=== PATIENT | male | born 1975 | race Caucasian/White ===

== ENCOUNTER 2021-10-13 16:18 | Emergency (ER) | payer OTHER, BC ==
[2021-10-13] MEDS ORDERED: IBUPROFEN600 MG PO (19:26)
[2021-10-13] MEDS ORDERED: NORFLEX 100 MG100 MG PO (19:26)
[2021-10-13] MEDS ORDERED: BACTROBAN OINT22 GM EXT (19:26)
== END 2021-10-13 19:31 | disposition home or self-care (01) ==
LOC: ER1 16:18
DX: S50.812A Abrasion of left forearm, initial encounter (principal); W22.8XXA Striking against or struck by other objects, initial encounter
CPT/HCPCS: 73090; 99283